=== PATIENT | male | born 2000 | race Caucasian/White ===

== ENCOUNTER 2024-10-09 01:01 | Emergency (ER) | payer OTHER, SELFPAY ==
--- OUTSIDE RECORDS SUMMARY | 2024-10-09 01:04 | XMS REPORT | Continuity of Care Document ---
Author Name Unknown Address [address] [facility] [address] [place] [address] [facility] Address [address] [facility] [address] [place] [address] Care Team Providers Care Outreach Educator Name Role Phone Alecia Melendez Primary Care Physician [phone] Medications Ordered Medication Name Filled Medication Name Start Date Stop Date Current Medication? Ordering Clinician Indication Dosage Frequency Signature (SIG) Comments Components Source TAKE 1 TABLET BY MOUTH EVERY DAY 03-27 00:00: 00 Yes Gume F Ben Vital Signs Vital Name Observation Time Observation Value Comments S ource Weight Measured 2023-11-30 16:28:00 204.60 pounds Gume F Ben Height Measured 2023-11-30 16:28:00 72.00 inches Gume F Ben Body Temperature 2023-11-30 16:28:00 98.10 degrees Gume F Ben Heart Rate 2023-11-30 16:28:00 64.00 /min Kelsey en F Ben Respiratory Rate 2023-11-30 16:28:00 18.00 /min Gume F Ben BP Systolic 2023-11-30 16:28:00 124 mm[Hg] Step hen F Ben BP Diastolic 2023-11-30 16:28:00 85 mm[Hg] Andre phen F Ben BP Systolic 2023-02-19 15:37:00 111 mm[Hg] Step hen F Ben BP Diastolic 2023-02-19 15:37:00 75 mm[Hg] Andre phen F Ben Weight Measured 2023-02-19 15:37:00 208.60 pounds Gume F Ben Height Measured 2023-02-19 15:37:00 72.00 inches Gume F Ben Body Temperature 2023-02-19 15:37:00 98.30 degrees Gume F Ben Heart Rate 2023-02-19 15:37:00 75.00 /min Kelsey en Ana Contreras Respiratory Rate 2023-02-19 15:37:00 Gume Contreras BP Systolic 2023-02-09 13:10:00 150 mm[Hg] Lul Contreras BP Diastolic 2023-02-09 13:10:00 84 mm[Hg] Andre Contreras Weight Measured 2023-02-09 13:10:00 208.20 pounds Gume Contreras Height Measured 2023-02-09 13:10:00 72.00 inches Gume Contreras Body Temperature 2023-02-09 13:10:00 98.40 degrees Gume Contreras Heart Rate 2023-02-09 13:10:00 61.00 /min Kelsey Contreras Respiratory Rate 2023-02-09 13:10:00 Gume Contreras Encounters Start Date/Time End Date/Time Encounter Type Admission Type Attending [facility] Care Department Encounter ID Source 2023-11-30 16:27:59 2023-11-30 16:27:59 Outpatient [facility] [id number] Guem Contreras 2023-11-30 00:00:00 2023-11-30 00:00:00 Outpatient Visit [facility] [id number] Gume Contreras 2023-03-05 11:24:06 2023-03-05 11:24:06 Outpatient [facility] [id number] Gume Contreras 2023-02-26 14:27:53 2023-02-26 14:27:53 Outpatient [facility] [id number] Gume Contreras 2023-02-19 15:36:02 2023-02-19 15:36:02 Outpatient [facility] [id number] Gume Contreras 2023-02-09 13:08:20 2023-02-09 13:08:20 Outpatient [facility] [id number] Guem Contreras Results Test Description Test Time Test Comments Results Result Co mments Source T. PALLIDUM - PA [REFLEX]2023-02-11 00:00:00* Test Item Value Reference Range Interpretation Comme nts T. PALLIDUM - PA (test code = 55671) REACTIVE Gume ContrerasCHLAMYDIA, NAAT, [id number] 19:18:32* Test Item Value Reference Range Interpretation Comme nts CHLAMYDIA, NAAT, URINE (test code = 11750) NEGATIVE NEGATIVE Testing is perfo rmed with She PATRICIA 6800/8800 systems usingreal-time polymerase chain reaction (PCR) method. A negative result does not exclude low level infection, specimensampling error, or collection error. GONORRHEA, NAAT, [id number] 19:18:32* Test Item Value Reference Range Interpretation Comme nts GONORRHEA, NAAT, URINE (test code = 65763) NEGATIVE NEGATIVE Testing is perfo rmed with She PATRICIA 6800/8800 systems usingreal-time polymerase chain reaction (PCR) method. A negative result does not exclude low level infection, specimensampling error, or collection error. RPR REFLEX TO T. PALLIDUM - [id number] 06:17:55* Test Item Value Reference Range Interpretation Comme nts RPR (test code = 17668) REACTIVE NON-REACTIVE A SCREENING RPR RE ACTIVE. SEE BELOW FOR REFLEX TP-PA RPR TITER (test code = 3500) 1:16 TITER NOT INDIC. H HIV 1/2 4TH GEN, RFLX [id number] 04:56:07* Test Item Value Reference Range Interpretation Comme nts HIV 1/2 4TH GEN, RFLX CONF ( test code = 3514) NON-REACTIVE NON-REACTIVE HIV 1/2 4TH GEN, RFLX [id number] 00:00:00* Test Item Value Reference Range Interpretation Comme nts HIV 1/2 4TH GEN, RFLX CONF ( test code = 3514) NON-REACTIVE Gume Perez AustinRPR REFLEX TO T. PALLIDUM - [id number] 00:00:00* Test Item Value Reference Range Interpretation Comme nts RPR (test code = 90933) REACTIVE RPR TITER (test code = 3500) 1:16 TITER Gume AbelAMYDIA, AMPLIFIED, [id number] 00:00:00* Test Item Value Reference Range Interpretation Comme nts CHLAMYDIA, NAAT, URINE (test code = 45288) NEGATIVE Gume ContrerasGC, AMPLIFIED, [id number] 00:00:00* Test Item Value Reference Range Interpretation Comme nts GONORRHEA, NAAT, URINE (test code = 32336) NEGATIVE Gume Contreras Notes Date/Time Note Provider Source Gume Contreras [facility]
[2024-10-09 01:34] LABS: Absolute Lymphocytes (CBC) 2.9 K/uL (0.7-4.9); Hematocrit 45.4 % (39.6-49.0); Hemoglobin 16.0 g/dL (13.6-17.9); MCH 31.4 pg (27.0-35.0); MCHC 35.3 g/dL (32.0-36.0); MCV 89.0 fL (80-100); MPV 8.4 fL (7.6-11.3); Nucleated RBC Absolute Count 0.0 (0-0); Nucleated Red Blood Cells % 0.0 % (0-0); RBC Red Blood Cell Count 5.11 M/uL (4.33-5.43); White Blood Count 7.20 thou/uL (4.3-10.9)
[2024-10-09 01:51] LABS: Anion Gap 7.5 mEq/L (5.0-15.0); BUN Blood Urea Nitrogen 16.0 mg/dL (7-18); Glucose Level 101.0 mg/dL (74-106); Potassium 3.5 mEq/L (3.5-5.1); Troponin High Sensitivity 4.0 pg/mL (<58.9)
--- NOTE | 2024-10-09 02:04 | EDPHYS ---
Physician Documentation [facility] Name: Willi Beck Age: 24 yrs Sex: Male : 2000 Arrival Date: 10/09/2024 Time: 01: Bed 18 Private MD: ED Physician Ania Khanna HPI: 10/09 01:17 This 24 yrs old Male presents to ER via Unassigned with complaints of Chest Pressure, sp3 Back Pain, Palpitations, Dizziness. 01:17 24-year-old male with no significant past medical history, prior illicit drug use sp3 including cocaine now presents to the ED with 1 week history of chest pain. Pain started after his last use of cocaine. He also uses marijuana. He denies any headache, fever, neck pain, shortness of breath, abdominal pain, nausea, vomit, diarrhea, syncope, near syncope, rash, or any other signs or symptoms on ROS at this time.. Historical: - Allergies: 01:08 No Known Allergies; cc6 - PMHx: 01:08 None; cc6 - Immunization history:: Adult Immunizations not up to date. - Infectious Disease History:: Denies. - Social history:: Smoking status: Reported history of juuling and/or vaping. Patient uses alcohol, on a daily basis. street drugs, cocaine, marijuana. ROS: 01:18 Constitutional: Negative for fever, chills, and weight loss, Eyes: Negative for injury, sp3 pain, redness, and discharge, Neck: Negative for injury, pain, and swelling, Respiratory: Negative for shortness of breath, cough, wheezing, and pleuritic chest pain, Abdomen/GI: Negative for abdominal pain, nausea, vomiting, diarrhea, and constipation, Back: Negative for injury and pain, MS/Extremity: Negative for injury and deformity, Skin: Negative for injury, rash, and discoloration, Neuro: Negative for headache, weakness, numbness, tingling, and seizure, Psych: Negative for depression, anxiety, suicide ideation, homicidal ideation, and hallucinations, Allergy/Immunology: Negative for hives, rash, and allergies, Endocrine: Negative for neck swelling, polydipsia, polyuria, polyphagia, and marked weight changes, Hematologic/Lymphatic: Negative for swollen nodes, abnormal bleeding, and unusual bruising, 01:18 All other systems are negative, Exam: 01:19 Constitutional: This is a well developed, well nourished patient who is awake, alert, sp3 and in no acute distress. Head/Face: Normocephalic, atraumatic. Eyes: Pupils equal round and reactive to light, extra-ocular motions intact. Lids and lashes normal. Conjunctiva and sclera are non-icteric and not injected. Cornea within normal limits. Periorbital areas with no swelling, redness, or edema. Neck: Trachea midline, no thyromegaly or masses palpated, and no cervical lymphadenopathy. Supple, full range of motion without nuchal rigidity, or vertebral point tenderness. No Meningismus. Chest/axilla: Normal chest wall appearance and motion. Nontender with no deformity. No lesions are appreciated. Cardiovascular: Regular rate and rhythm with a normal S1 and S2. No gallops, murmurs, or rubs. Normal PMI, no JVD. No pulse deficits. Respiratory: Lungs have equal breath sounds bilaterally, clear to auscultation and percussion. No rales, rhonchi or wheezes noted. No increased work of breathing, no retractions or nasal flaring. Abdomen/GI: Soft, non-tender, with normal bowel sounds. No distension or tympany. No guarding or rebound. No evidence of tenderness throughout. Back: No spinal tenderness. No costovertebral tenderness. Full range of motion. Skin: Warm, dry with normal turgor. Normal color with no rashes, no lesions, and no evidence of cellulitis. MS/ Extremity: Pulses equal, no cyanosis. Neurovascular intact. Full, normal range of motion. Neuro: Awake and alert, GCS 15, oriented to person, place, time, and situation. Cranial nerves II-XII grossly intact. Motor strength 5/5 in all extremities. Sensory grossly intact. Cerebellar exam normal. Normal gait. Psych: Awake, alert, with orientation to person, place and time. Behavior, mood, and affect are within normal limits. 02:00 ECG was reviewed by the Attending Physician. EKG demonstrates normal sinus rhythm at 60 sp3 bpm with normal intervals, normal QRS, normal axis, normal ST/T-segment's without evidence of acute ischemia. Vital Signs: 01:08 BP 153 / 95; Pulse 66; Resp 16; Temp 98.7(O); Pulse Ox 100% ; Weight 92.99 kg; Height 6 cc6 ft. 0 in. ; Pain 6/10; 01:47 BP 158 / 79; Pulse 59; Resp 16; Pulse Ox 99% on R/A; cc6 02:18 BP 133 / 74; Pulse 59; Resp 15; Pulse Ox 100% ; cc6 01:08 Body Mass Index 27.80 (92.99 kg, 182.88 cm) 6 01:08 Pain Scale: Adult cc6 MDM: 01:12 Medical Screening Exam initiated sp3 01:19 Data reviewed: vital signs, nurses notes, old medical records, lab test result(s), EKG, sp3 radiologic studies. ED course: 24-year-old male with chest pain. Differential diagnosis includes musculoskeletal pain, drug induced pain, GERD, gastritis, into a much lower degree acute coronary syndrome or other vascular pathology. Workup include EKG, chest x-ray and general labs. Disposition probable discharge if workup negative. Drug use counseling given by me.. 02:01 ED course: Full workup negative including chest x-ray, EKG and general labs with sp3 negative troponin. Symptoms have been for over a week and 1 troponin should rule patient out for any cardiac injury. I have counseled patient on drug use. Will safely discharge patient home at this time.. 10/09 01:17 Order name: Basic Metabolic Panel; Complete Time: 02:00 sp3 10/09 01:17 Order name: CBC with Diff; Complete Time: 01:49 sp3 10/09 01:17 Order name: Troponin HS; Complete Time: 02:00 sp3 10/09 01:17 Order name: XRAY Chest (1 view) sp3 10/09 01:17 Order name: EKG; Complete Time: 01: sp3 10/09 01:17 Order name: Cardiac monitoring; Complete Time: : sp3 10/09 01:17 Order name: EKG - Nurse/Tech; Complete Time: sp3 10/09 01:17 Order name: IV Saline Lock; Complete Time: : sp3 10/09 01:17 Order name: Labs collected and sent; Complete Time: : sp3 10/09 01:17 Order name: O2 Sat Monitoring; Complete Time: sp3 Administered Medications: No medications were administered Disposition Summary: 10/09/24 02:03 Discharge Ordered Notes: Location: Home sp3 Condition: Stable sp3 Diagnosis - chest pain sp3 Followup: sp3 - With: Private Physician - When: Upon discharge from the Emergency Department - Reason: Recheck today's complaints Discharge Instructions: - Discharge Summary Sheet sp3 - Nonspecific Chest Pain, Adult sp3 - Substance Use Disorder sp3 Forms: - Medication Reconciliation Form sp3 - Antibiotic Education sp3 - Prescription Opioid Use sp3 - Patient Portal Instructions sp3 - Leadership Thank You Letter sp3 Signatures: Dispatcher [employer] Ania Shea MD MD sp3 Tiffany Shoemaker RN RN cc6
--- NOTE | 2024-10-09 02:04 | ER ---
Nurse's Notes [facility] Name: Willi Beck Age: 24 yrs Sex: Male : 2000 Arrival Date: 10/09/2024 Time: 01:01 Bed 18 Private MD: Diagnosis: chest pain Presentation: 10/09 01:08 Chief complaint: Patient states: chest tightness and pain on the left side of the chest cc6 with movement over a week. 01:08 Method Of Arrival: Ambulatory cc6 01:08 Coronavirus screen: Client denies travel out of the [place] in the last 14 days. Ebola cc6 Screen: No symptoms or risks identified at this time. Initial Sepsis Screen: Does the patient meet any 2 criteria? No. Patient's initial sepsis screen is negative. Does the patient have a suspected source of infection? No. Patient's initial sepsis screen is negative. Risk Assessment: Do you want to hurt yourself or someone else? Patient reports no desire to harm self or others. Onset of symptoms was October 02, 2024. 01:08 Acuity: DHEERAJ 2 cc6 Triage Assessment: 01:08 General: Appears comfortable, Behavior is calm, cooperative. Pain: Complains of pain in cc6 chest left side Pain radiates to posterior aspect of left shoulder Pain currently is 6 out of 10 on a pain scale. Quality of pain is described as pressure, Pain began 1 week ago. Neuro: Level of Consciousness is awake, alert, obeys commands, Oriented to person, place, time, situation. Cardiovascular: Reports chest pain, palpitations, since 1 week ago Capillary refill < 3 seconds Patient's skin is warm and dry. Rhythm is sinus rhythm. Respiratory: Airway is patent Respiratory effort is even, unlabored, Respiratory pattern is regular, symmetrical. GI: No signs and/or symptoms were reported involving the gastrointestinal system. Abdomen is round non-distended. : No signs and/or symptoms were reported regarding the genitourinary system. Derm: Skin is pink, warm \T\ dry. normal. Musculoskeletal: Circulation, motion, and sensation intact. Range of motion: intact in all extremities. Historical: - Allergies: 01:08 No Known Allergies; cc6 - PMHx: : None; cc6 - Immunization history:: Adult Immunizations not up to date. - Infectious Disease History:: Denies. - Social history:: Smoking status: Reported history of juuling and/or vaping. Patient uses alcohol, on a daily basis. street drugs, cocaine, marijuana. Screenin:42 [facility] ED Fall Risk Assessment (Adult) History of falling in the last 3 months, cc6 including since admission No falls in past 3 months (0 pts) Confusion or Disorientation No (0 pts) Intoxicated or Sedated No (0 pts) Impaired Gait No (0 pts) Mobility Assist Device Used No (0 pt) Altered Elimination No (0 pt) Score/Fall Risk Level 0 - 2 = Low Risk Oriented to surroundings, Maintained a safe environment, Hourly rounding (assess needs \T\ fall precautionary measures) done. Abuse screen: Denies threats or abuse. Denies injuries from another. Nutritional screening: No deficits noted. Tuberculosis screening: No symptoms or risk factors identified. Assessment: 01:08 General: SEE TRIAGE ASSESSMENT. cc6 02:17 Reassessment: Patient and/or family updated on plan of care and expected duration. Pain cc6 level reassessed. Patient is alert, oriented x 3, equal unlabored respirations, skin warm/dry/pink. Vital Signs: 01:08 BP 153 / 95; Pulse 66; Resp 16; Temp 98.7(O); Pulse Ox 100% ; Weight 92.99 kg; Height 6 cc6 ft. 0 in. ; Pain 6/10; 01:47 BP 158 / 79; Pulse 59; Resp 16; Pulse Ox 99% on R/A; cc6 02:18 BP 133 / 74; Pulse 59; Resp 15; Pulse Ox 100% ; cc6 01:08 Body Mass Index 27.80 (92.99 kg, 182.88 cm) cc6 01:08 Pain Scale: Adult cc6 ED Course: 01:04 Patient arrived in ED. im 01:08 No provider procedures requiring assistance completed. Inserted saline lock: 20 gauge cc6 in right antecubital area, using aseptic technique. Blood collected. Flushed with 10 mL NS. Patient maintains SpO2 saturation greater than 95% on room air. 01:08 Patient has correct armband on for positive identification. Bed in low position. Call cc6 light in reach. Side rails up X 1. 01:08 Provided Education on: call light and plan of care. Client placed on continuous cardiac cc6 and pulse oximetry monitoring. NIBP monitoring applied. night monitor on. 01:12 Ania Khanna MD is Attending Physician. sp3 01:27 Basic Metabolic Panel Sent. cc6 01:27 CBC with Diff Sent. cc6 01:27 Troponin HS Sent. cc6 01:33 Triage completed. cc6 01:45 Arm band placed on right wrist. cc6 01:47 Tiffany Shoemaker, RN is Primary Nurse. cc6 02:03 XRAY Chest (1 view) In Process Unspecified. EDMS 02:19 IV discontinued, intact, bleeding controlled, No redness/swelling at site. Pressure cc6 dressing applied. Administered Medications: No medications were administered Medication: 01:44 VIS not applicable for this client. cc6 Outcome: 02:03 Discharge ordered by . sp3 02:18 Discharged to home ambulatory, cc6 02:18 Condition: stable 02:18 Discharge instructions given to patient, Instructed on discharge instructions, follow up and referral plans. Demonstrated understanding of instructions, follow-up care, 02:19 Patient left the ED. cc6 Signatures: Dispatcher [employer] EDMS Ania Khanna MD MD sp3 Liliana Dickerson Tiffany Shoemaker, RN RN cc6
--- NOTE | 2024-10-09 04:10 | RAD REPORT ---
CLINICAL HISTORY: Chest pain. COMPARISON: None. TECHNIQUE: XR CHEST 1 VIEW 10/09/2024 1:17 AM CDT FINDINGS: Cardiac silhouette is normal in size. Lungs are clear without consolidation, atelectasis, mass or anam ma. There is no pleural effusion. There is no pneumothorax. There are no acute osseous findings. IMPRESSION: Clear lungs. Electronically signed by: Dain Kahn MD 10/09/2024 03:41 AM CDT RP Due to temporary technical issues with the PACS/[employer] reporting system, reports are being taylor d by the in-house radiologist without review as a courtesy to ensure prompt reporting the interpreting radiologist is fully responsible for the content of the report. Transcribed Date/Time: 10/09/2024 4:10 AM
[2024-10-10 05:44] VITALS: BP 133/74; TEMP 98.7; O2SAT 100
== END 2024-10-09 02:19 | disposition home or self-care (01) ==
LOC: ER 01:01
DX: R07.9 Chest pain, unspecified (principal)
CPT/HCPCS: 36415; 71045; 80048; 84484; 85025; 93005; 99284